=== PATIENT | female | born 1995 | race Caucasian/White ===

== ENCOUNTER → 2018-09-09 | Outpatient (CLI) | payer OTHER ==
--- NOTE | 2018-09-09 14:23 | RADIOLOGY REPORT (SQ) ---
EXAM DESCRIPTION: NM GASTRIC EMPTYING STUDY COMPLETED DATE/TIME: 09/09/2018 1:49 pm REASON FOR STUDY: NAUSEA AND VOMITING R11.2 NAUSEA WITH VOMITING, UNSPECIFIED R11.2 NAUSEA WITH VO MITING, UNSPECIFIED COMPARISON: None. RADIONUCLIDE AND DOSE: 2 millicuries Tc-99m Sulfur Colloid. Egg salad sandwich The route of agent administration: Oral. TECHNIQUE: 1 minute serial static imaging performed at time of meal, 1 hour, 2 hours, 3 hours, and 4 hours as needed. Once stomach reaches 90% emptying, the test is complete. Image intensity values pl otted with respect to time with linear regression algorithm. LIMITATIONS: None. FINDINGS: Patient was observed for 4 hours. Immediate post meal serves as baseline. Gastric emptying at 30 minutes was 22.9%. Gastric emptying at 60 minutes was 40.6% Gastric emptying at 90 minutes was 54.3%. Gastric emptying at 120 minutes was 64.7%. Gastric emptying at 240 minutes was 87.6%. Normal values: 60 minutes: 30-90% retained. If less than 30%, abnormally rapid emptying. If greater than 90%, del ayed gastric emptying. 120 minutes: <60% retained. If greater than 60%, delayed gastric emptying. 240 minutes: <10% retained. If greater than 10%, delayed gastric emptying. IMPRESSION: Delayed gastric emptying. TECHNICAL DOCUMENTATION: JOB ID: [id number] [employer]- All Rights Reserved rev-04/01 Reading location - IP/workstation name: [email or web address]
== END ==
LOC: RAD 07:58
PROVIDERS: ATTEND Internal Medicine Gastroenterology
DX: R11.2 Nausea with vomiting, unspecified (principal)
CPT/HCPCS: 78264; A9541

== ENCOUNTER 2018-09-19 08:42 | Day surgery (SDC) | payer OTHER ==
[~2018-09-19 08:42] MED LIST: PROPOFOL INJ 200 MG/20 ML VIAL IV ONE
[2018-09-19] MEDS ORDERED: ONABOTULINUMTOXINA INJ/PF 100 UNIT SDV IM ONE (10:00)
[2018-09-19 10:37] VITALS: BP 124/81
--- NOTE | 2018-09-19 13:07 | Operative Report ---
Operative Report DATE OF SURGERY: 09/19/18 Operative Report: The risks benefits and alternatives of the procedure explained to the patient in detail and informed consent is obtained.A GIF Olympus video scope was inserted into the patient's mouth and hypopharynx, the esophagus is identified intubated and insufflated ,the scope was then advanced through the esophagus stomach and duodenum, retroflexion maneuver is done the esophagus stomach and first and second portions of the duodenum examined PREOPERATIVE DIAGNOSIS: Gastroparesis, nausea vomiting POSTOPERATIVE DIAGNOSIS: Gastritis status post biopsy rule out Helicobacter pylori. Esophagitis status post biopsy rule out Nolan's esophagus. Botox injection at the gastric outlet, total of 100 units in 5 mL with 20 units/cc injection OPERATION: EGD with submucosal injection. EGD with biopsy SURGEON: GLENROY COLVIN ANESTHESIA: LMAC TISSUE REMOVED OR ALTERED: As noted above. COMPLICATIONS: None. ESTIMATED BLOOD LOSS: None. INTRAOPERATIVE FINDINGS: As noted above PROCEDURE: Patient tolerated the procedure well. No immediate postprocedure complications are noted. Patient discharged in good condition. Discharge date 09/19/2018. Discharge diet: Regular. Discharge activity: Regular. 2-3-week follow-up to discuss findings. Patient is instructed call the office or proceed to the emergency room should there be any further proximal questions. Wait on the pathology.
== END 2018-09-19 10:30 | disposition home or self-care (01) ==
LOC: END 08:42
PROVIDERS: ATTEND Internal Medicine Gastroenterology
DX: K31.84 Gastroparesis (principal); K29.50 Unspecified chronic gastritis without bleeding; K21.0 Gastro-esophageal reflux disease with esophagitis; E07.9 Disorder of thyroid, unspecified; F17.210 Nicotine dependence, cigarettes, uncomplicated; D64.9 Anemia, unspecified; E66.9 Obesity, unspecified; Z68.39 Body mass index [BMI] 39.0-39.9, adult; Z88.5 Allergy status to narcotic agent; Z88.0 Allergy status to penicillin; Z79.899 Other long term (current) drug therapy
CPT/HCPCS: 43236; 43239; 81025; 88342 ×2; 88305 ×2; J2704; J0585; 731

== ENCOUNTER 2019-05-29 10:09 | Day surgery (SDC) | payer OTHER ==
[2019-05-29] MEDS ORDERED: ONABOTULINUMTOXINA INJ/PF 100 UNIT SDV IJ ONE (12:00)
[2019-05-29] MEDS ORDERED: PROPOFOL INJ 200 MG/20 ML VIAL IV ONE (12:09)
--- NOTE | 2019-05-29 12:46 | Operative Report ---
Operative Report DATE OF SURGERY: 05/29/19 Operative Report: The risks benefits and alternatives of the procedure explained to the patient in detail and informed consent is obtained.A GIF Olympus video scope was inserted into the patient's mouth and hypopharynx, the esophagus is identified intubated and insufflated, the scope was then advanced through the esophagus stomach and duodenum, retroflexion maneuver is done, the esophagus stomach and first and second portions of the duodenum examined. PREOPERATIVE DIAGNOSIS: Nausea vomiting, gastroparesis POSTOPERATIVE DIAGNOSIS: Gastritis status post biopsy. Gastroparesis with submucosal Botox injection 100 units per 5 mL OPERATION: EGD with submucosal injection. EGD with biopsy SURGEON: GLENROY COLVIN ANESTHESIA: LMAC TISSUE REMOVED OR ALTERED: As noted above COMPLICATIONS: None. ESTIMATED BLOOD LOSS: None. INTRAOPERATIVE FINDINGS: As noted above. PROCEDURE: Patient tolerated the procedure well. No immediate postprocedure comp occasions are noted. Patient is discharged in good condition. Discharge date 05/29/2019. Discharge diet: Regular. Discharge activity: Regular. 2 to 3-week follow-up to discuss findings. Patient is instructed to call the office or proceed to the emergency room should there be any further problems or questions. Wait on the pathology.
[2019-05-29 13:58] VITALS: BP 125/76
== END 2019-05-29 12:46 | disposition home or self-care (01) ==
LOC: END 10:09
PROVIDERS: ATTEND Internal Medicine Gastroenterology
DX: K31.84 Gastroparesis (principal); K29.70 Gastritis, unspecified, without bleeding; D64.9 Anemia, unspecified; E07.9 Disorder of thyroid, unspecified; F17.210 Nicotine dependence, cigarettes, uncomplicated; E66.9 Obesity, unspecified; Z68.39 Body mass index [BMI] 39.0-39.9, adult
CPT/HCPCS: 43236; 43239; 81025; 88342 ×2; 88305 ×2; J2704; J0585

== ENCOUNTER → 2020-09-05 | Day surgery (SDC) | payer OTHER ==
[~2020-09-05] MED LIST changes: +ONABOTULINUMTOXINA INJ/PF 100 UNIT SDV IM PRN
--- NOTE | 2020-09-05 10:57 | Operative Report ---
Operative Report DATE OF SURGERY: 09/05/20 Operative Report: The risk, benefits and alternatives of the procedure including the risks of bleeding, perforation requiring surgery have been explained to the patient in detail and informed consent has been obtained. Patient is placed in left, lateral decubital position. Timeout scope. Propofol medication is administered. Rectal examination is done which did not reveal any masses, tears or fissures. An Olympus videoscope was introduced into the patient's rectum. Scope was then carefully advanced all the way to the cecum. Prep was good. Intubation of the terminal ileum was done. Scope was then sequentially pulled back via the various segments of the colon including the ascending colon, hepatic flexure, transverse colon, splenic flexure, descending colon and finally into the rectosigmoid portions of the colon. Retroflexion maneuver is performed. The risks benefits and alternatives of the procedure explained to the patient in detail and informed consent is obtained.A GIF Olympus video scope was inserted into the patient's mouth and hypopharynx ,the esophagus is identified intubated and insufflated ,the scope was then advanced through the esophagus stomach and duodenum, retroflexion maneuver is done the esophagus stomach and first and second portions of the duodenum examined PREOPERATIVE DIAGNOSIS: Change in bowel habits. Nausea vomiting, gastroparesis POSTOPERATIVE DIAGNOSIS: Random biopsies taken in the terminal ileum rule out Crohn's disease. Random biopsies taken right side of colon rule out collagenous colitis. Internal hemorrhoids. Gastritis. Status post Botox injection 100 units in 4 mL for 25 units/mL injection in the stomach at the gastric outlet OPERATION: Colonoscopy with biopsy. EGD with submucosal injection SURGEON: GLENROY COLVIN ANESTHESIA: LMAC TISSUE REMOVED OR ALTERED: As noted above. COMPLICATIONS: None. ESTIMATED BLOOD LOSS: None. INTRAOPERATIVE FINDINGS: As noted above. PROCEDURE: Patient tolerated the procedure well. No immediate postprocedure complications are noted. Patient is discharged in good condition. Discharge date 09/05/2020. Discharge diet: Regular. Discharge activity: Regular. 2 to 3-week follow-up to discuss findings. Patient is instructed call the office or proceed to the emergency room should there be any further problems or questions. Wait on the pathology.
[2020-09-05 11:08] VITALS: BP 110/67
== END ==
LOC: END 08:58
PROVIDERS: ATTEND Internal Medicine Gastroenterology
DX: R19.4 Change in bowel habit (principal); K64.8 Other hemorrhoids; K31.84 Gastroparesis; K29.70 Gastritis, unspecified, without bleeding; K21.9 Gastro-esophageal reflux disease without esophagitis; F41.1 Generalized anxiety disorder; F33.9 Major depressive disorder, recurrent, unspecified; F17.210 Nicotine dependence, cigarettes, uncomplicated; Z20.828 Contact with and (suspected) exposure to other viral communicable diseases; Z88.5 Allergy status to narcotic agent; Z88.0 Allergy status to penicillin
CPT/HCPCS: 43236; 45380; 87635; 88305 ×2; 00813; J2704; J0585; C9803; 813